=== PATIENT | female | born 1980 | race African-American/Black ===

== ENCOUNTER 2021-02-25 04:00 | Emergency (ER) | payer OTHER, SELFPAY ==
--- NOTE | ~2021-02-25 | US_ITS ---
EXAMINATION: US pelvic complete DATE: 02/25/2021 08:19 INDICATION: Pelvic pain. Fibroids. TECHNIQUE: Multiple transabdominal sonographic images of the pelvis were obtained. COMPARISON: CT abdomen and pelvis 02/25/2021 FINDINGS: The uterus measures 7.8 x 4.1 x 4.0 cm. There is no free fluid in the pelvis. The endometrial complex measures 2 mm in thickness. The uterus demonstrates heterogeneous echogenicity. There are 1.9 cm and 2.6 cm intramural uterine fibroids. The right ovary measures 2.3 x 1.6 x 1.4 cm. There is normal vas cular flow in right ovary. The left ovary is not visualized. IMPRESSION: 1. Uterine fibroids. Reviewed, dictated and finalized at location A. IMPRESSION: 1. Uterine fibroids.
--- NOTE | ~2021-02-25 | CT_ITS ---
EXAMINATION: CT abdomen pelvis w con DATE: 02/25/2021 05:33 INDICATION: Low abdominal pain. TECHNIQUE: Computed tomography (CT) of the abdomen and pelvis was performed with 100 mL Omnipaque 350 intravenous contrast. Automated exposure control and iterative reconstruction technique were employe d. The dose-length product was 584.97 mGy-cm. COMPARISON: CT abdomen and pelvis 10/17/2017 FINDINGS: The visualized portions of the lung bases demonstrate minimal atelectasis. No pleural effus ion. The heart size is normal. No pericardial effusion. The liver, gallbladder, spleen, pancreas, adr enal glands, and kidneys are normal. Stool distends the rectum. The appendix is normal. Uterine fibro ids are noted. There are no pathologically enlarged lymph nodes. There is no free intraperitoneal flu id. There is widespread subcutaneous fat stranding, likely fat necrosis and scarring such as from cos metic procedures. The bones are unremarkable. IMPRESSION: 1. Uterine fibroids. Reviewed, dictated and finalized at location A. IMPRESSION: 1. Uterine fibroids.
[2021-02-25 04:10] VITALS: BP 111/57; PULSE 72; RESP 18; TEMP 36.8; O2SAT 100
[2021-02-25 04:39] LABS: Basophils Percent Auto 0.4 % (0.2-1.2); Eosinophils Absolute Auto 0.2 K/mm3 (0-0.3); Eosinophils Percent Auto 2.8 % (0-4.4); Hemoglobin 14.3 g/dL (12.0-15.0); Immature Granulocyte Absolute 0.03 K/mm3 (0.00-0.031); Immature Granulocyte Percent A 0.4 % (0-0.5); Lymphocytes Absolute Auto 2.93 K/mm3 (0.9-3.2); Lymphocytes Percent Auto 40.8 % (18.3-44.2); Mean Corpuscular HGB Conc 33.3 g/dl (32-36); Mean Corpuscular Hemoglobin 28.8 pg (26-34); Mean Corpuscular Volume 86.7 fl (80-100); Mean Platelet Volume 10.9 fl (7.4-10.4); Monocytes Absolute Auto 0.6 K/mm3 (0.1-0.6); Monocytes Percent Auto 7.6 % (2.6-8.5); Neutrophils Absolute Auto 3.5 K/mm3 (1.3-6.7); Platelet Count Result 227 k/mm3 (150-375); Red Blood Count 4.96 M/mm3 (4.2-5.4); Red Cell Distribution Width 12.3 % (11.5-14.5); White Blood Count 7.2 K/mm3 (4.5-10.0)
[2021-02-25 04:52] LABS: Anion Gap 5 mmol/L (8-16); Blood Urea Nitrogen 14 mg/dL (7-17); Calcium 8.9 mg/dL (8.4-10.2); Carbon Dioxide 27 mmol/L (22-30); Chloride 106 mmol/L (98-107); Estimated CRCL calculation 82 ml/min; Estimated Glomerular Filt Rate > 60; Glucose 159 mg/dL (65-105); Potassium 3.8 mmol/L (3.4-5.0); Sodium 138 mmol/L (137-145)
[2021-02-25 04:55] LABS: Add Urine Microscopic? YES; Appearance Urine Clear (Clear); Bilirubin Urine Negative (Negative); Blood Urine 2+ (Negative); Color Urine Straw (Yellow); Glucose Urine UA Negative (Negative); Ketones Urine Negative (Negative); Leukocyte Esterase Ur Negative LEU/UL (Negative); Mucus Urine Rare /lpf; Nitrate Urine Negative (Negative); Protein Urine Negative (Negative); RBC Urine 0-2 /hpf (0-2); Specific Grav Ur 1.016 (1.001-1.035); Squamous Epithelial Cell Urine Occasional /hpf (Few); Urobilinogen Urine Negative mg/dL (<2.0); WBC Urine 0-3 /hpf
[2021-02-25 04:59] LABS: Alanine Aminotransferase 19 U/L (4-35); Albumin Level 3.7 g/dL (3.5-5.1); Alkaline Phosphatase 76 U/L (38-126); Aspartate Amino Transferase 24 U/L (14-36); Bilirubin,Total 0.2 mg/dL (0.2-1.3); Lipase 54 U/L (23-300)
[2021-02-25] MEDS: SODIUM CHLORIDE 0.9% IV 1,000 ML 999 ML IV CONT (05:20)
[2021-02-25] MEDS: MORPHINE SULFATE (*CRX) 4 MG/ML INJ IV PUSH ×2 (05:21→06:34)
[2021-02-25] MEDS: ONDANSETRON INJ 4 MG/2 ML VIAL IV PUSH (05:21)
--- NOTE | 2021-02-25 05:30 | ED.GENADULT ---
HPI - General Adult General Chief complaint: Abdominal Pain <Jeff Lane MD - Last Filed: 02/25/21 05:32> Stated complaint: abd pain <Jeff Lane MD - Last Filed: 02/25/21 05:32> Time Seen by Provider: 02/25/21 04:42 <Jeff Lane MD - Last Filed: 02/25/21 05:32> History of Present Illness HPI narrative: Patient 40-year-old female presents emergency department with chief complaint of abdominal pain. Patient reports she has history of endometriosis and has had an endometrial ablation before in the past patient states over the last week she has been spotting a little bit at night is worse patient states she spoke to her PAT[employer] PROGRAMER who recommended that she come to the emergency department for evaluation. Patient states that she has had no fever or chills. <Jeff Lane MD - Last Filed: 02/25/21 05:32> Related Data Allergies/adverse reactions: Allergies Allergy/AdvReac Type Severity Reaction Status Date / Time No Known Allergies Allergy Unverified 10/31/17 08:07 <Jeff Lane MD - Last Filed: 02/25/21 05:32> Review of Systems Review of Systems: Narrative: A 10 system review of systems was completed on the patient and is negative except for what is stated in the HPI. Nursing and ancillary documentation was reviewed. <Jeff Lane MD - Last Filed: 02/25/21 05:32> PMFSH Comments Past medical history significant for endometriosis Surgical history is history of tubal ligation and endometrial ablation Social history patient denies illicit drug <Jeff Lane MD - Last Filed: 02/25/21 05:32> Exam Narrative: Exam Narrative: GENERAL: Well-appearing, well-nourished, and in no acute distress. HEAD: Normocephalic, atraumatic. EYES: PERRLA and EOMI. ENT: Nares clear, no rhinorrhea or epistaxis. Mucous membranes moist. NECK: Supple. CHEST: Clear to auscultation. No respiratory distress. HEART: Regular rate and rhythm. No murmur heard. Normal peripheral pulses. ABDOMEN: Soft, tenderness to palpation bilateral lower quadrants, nondistended, normal active bowel sounds. EXTREMITIES: Normal range of motion. No edema. SKIN: Warm, dry, no rash. NEURO: No focal deficits. Alert and oriented x3. PSYCH: Normal mood and affect. <Jeff Lane MD - Last Filed: 02/25/21 05:32> Course Vital Signs Vital signs: Vital Signs Temperature 36.8 C 02/25/21 04:10 Pulse Rate 72 02/25/21 04:10 Respiratory Rate 18 02/25/21 04:10 Blood Pressure 111/57 L 02/25/21 04:10 Pulse Oximetry 100 02/25/21 04:10 Temperature 36.8 C 02/25/21 04:10 Pulse Rate 75 02/25/21 07:25 Respiratory Rate 18 02/25/21 07:25 Blood Pressure 120/59 L 02/25/21 07:25 Pulse Oximetry 100 02/25/21 07:25 <Jeff Lane MD - Last Filed: 02/25/21 05:32> Vital Signs Temperature 36.8 C 02/25/21 04:10 Pulse Rate 72 02/25/21 04:10 Respiratory Rate 18 02/25/21 04:10 Blood Pressure 111/57 L 02/25/21 04:10 Pulse Oximetry 100 02/25/21 04:10 Temperature 36.8 C 02/25/21 04:10 Pulse Rate 75 02/25/21 07:25 Respiratory Rate 18 02/25/21 07:25 Blood Pressure 120/59 L 02/25/21 07:25 Pulse Oximetry 100 02/25/21 07:25 <Destini Javier MD - Last Filed: 02/25/21 08:39> Medical Decision Making Vital Signs Vital Signs: Vital Signs Temperature 36.8 C 02/25/21 04:10 Pulse Rate 72 02/25/21 04:10 Respiratory Rate 18 02/25/21 04:10 Blood Pressure 111/57 L 02/25/21 04:10 Pulse Oximetry 100 02/25/21 04:10 Temperature 36.8 C 02/25/21 04:10 Pulse Rate 75 02/25/21 07:25 Respiratory Rate 18 02/25/21 07:25 Blood Pressure 120/59 L 02/25/21 07:25 Pulse Oximetry 100 02/25/21 07:25 <Jeff Lane MD - Last Filed: 02/25/21 05:32> Vital Signs Temperature 36.8 C 02/25/21 04:10 Pulse Rate 72 02/25/21 04:10 Respirat
[2021-02-25 05:47] VITALS: BP 111/62; PULSE 18; RESP 20; O2SAT 100
[2021-02-25 06:36] VITALS: BP 121/60; PULSE 76; RESP 18; O2SAT 100
[2021-02-25 07:25] VITALS: BP 120/59; PULSE 75; RESP 18; O2SAT 100
[2021-02-25] MEDS: HYDROmorphone HCL INJ (*CRX) 1 MG/ML SYR 0.5 MG IV PUSH (08:19)
== END 2021-02-25 09:07 | disposition home or self-care (01) ==
PROVIDERS: Emergency Medicine; Emergency Provider Emergency Medicine; PCP Family Medicine
DX: D25.9 Leiomyoma of uterus, unspecified (principal); R10.2 Pelvic and perineal pain
CPT/HCPCS: 36415; 74177; 76856; 80048; 80076; 81001; 81025; 83690; 85025; 96361; 96374; 96375; 96376; 99284; J1170; J2270; J2405; J7030; Q9967

== ENCOUNTER 2022-06-10 01:44 | Day surgery (SDC) | payer OTHER, SELFPAY ==
--- NOTE | 2022-06-02 08:26 | PC.NURSE ---
Report to the Outpatient Waiting Room, entrance under the green pavilion located off [facility], at time 0730___ on date _06/10/22_. OR Time: __09. - You and your visitor will be asked to self-screen and do not enter if you have any COVID symptoms. - Only one visitor and NO children visitors are allowed at this time. - The patient visitor is requested to leave or wait in car when not with patient due to restrictions. - A mask is required within the hospital. Patients may have clear liquids (water, carbonated beverages, clear teas, apple juice) until 3 hours prior to surgery with a maximum of 20 ounces. - No food from midnight until time of surgery - Infants may have breast milk until 4 hours before surgery, infant formula 6 hours prior to surgery. - Children will be allowed to drink immediately following surgery. If applicable, please bring a bottle or sippy cup to assist with drinking. Juice, water, soda, and popsicles are readily available. For infants on formula, please bring formula the day of surgery. Pacifiers are allowed. Take the following medications with a SIP of water the morning of surgery: ___NONE__ Medications to discontinue per physician NONE Date to take last dose Please no make-up, nail bulgarian, hairspray, perfume, deodorant, or body powder the day of surgery. No jewelry (including any body piercings) or valuables the day of surgery, leave them at home. Please take a shower or bath the night before, or the morning of, surgery with an antibacterial soap. Wear comfortable, loose fitting clothing. Children are encouraged to wear pajamas. - Jewelry must be removed prior to entering the operating room. Rings and piercings that are not removed may be cut off. - The hospital will not accept responsibility for valuables. - Please leave all valuables, including medications, at home the day of surgery. If you are going home after surgery, a licensed dumpcart driver must drive you home. - NO public transportation without another adult. - We recommend that an adult stay with you for 24 hours following discharge. - We also recommend that you do not drive, make important decision, drink alcoholic beverages, or take any drugs that were not prescribed by your health care provider for at least 24 hours after your discharge time. For Pediatric surgeries, we recommend two adults accompany the child home (only one inside the building at this time). Follow any additional instructions given to you from your surgeon. If you or anyone in your household have experienced Covid symptoms in the past week, please notify your surgeon or the nurse liaison at the phone number below for possible testing. Telephone instructions given to _PATIENT___and asked if any additional questions and then verbalized understanding. Patient advised to call surgeon office or pre surgery nurse liaison [phone] if any additional questions.
--- NOTE | 2022-06-09 13:12 | P.PNAN_ITS ---
Anes - Initial Pre Proc Eval Procedure: Operation Date: 06/10/22 07:30 Proposed Procedures p Left Shoulder Manipulation Under Anesthesia - Camden Jang MD Date/Time: 06/09/22 13:12 Surgeon: Camden Jang MD Pre Op Diagnosis: Frozen Left Shoulder Patient Data Age: 42 Gender: F Height: Weight: Allergies Allergy/AdvReac Type Severity Reaction Status Date / Time No Known Allergies Allergy Unverified 06/02/22 08:18 Home Medications Medication Instructions Recorded Confirmed Type [id number]-[id number] 1 tablet PO 06/02/22 History 50 mg-325 mg-40 mg tablet rimegepant 75 mg disintegrating 75 mg PO PRN PRN Migraine Headache 06/02/22 06/02/22 History tablet (Nurtec ODT) Patient hx anesthesia problems: none Family hx anesthesia problems: none Results Review: All pre-operative results and documents have been reviewed as part of the pre- operative evaluation. PMFSH Social History Social History Tobacco type: e-cigarettes/vaping Additional smoking assessment comments: DAILY FOR THE LAST MONTH Alcohol intake: current Drinks per week: 2 Living arrangements: alone Anes - Eval Final PreProcedure Day of Procedure 06/09/22 13:12 Patient weight: overweight Heart: regular rate and rhythm Lungs: clear to auscultation and normal air movement Airway: Mallampati scale class II Neurological: alert and oriented Last oral intake: >/= 8 hours ASA classification: II Emergent: no Anesthetic plan: proceed Anesthesia type and monitoring: general GIVS Results Review: All pre-operative results and documents have been reviewed as part of the pre- operative evaluation. Informed Consent: The patient's anesthetic plan and its attendant risks and benefits were discussed with the patient/family/POA. Questions were solicited and answers provided to the satisfaction of the patient/family/POA.
--- NOTE | 2022-06-09 21:15 | HP_ITS ---
DATE OF SERVICE: 06/10/2022 James Darling PA-C, dictating a history and physical report on behalf of Dr. Camden Jang. HISTORY: The patient is a 42-year-old female, who sees Dr. Jang regarding her left shoulder. The patient has a chronic ongoing history of pain with stiffness and loss of motion. This is consistent with frozen shoulder chronically. The patient has undergone treatment for this, which initially started when she was trying to escape a dog and jumped under the farris of the car and landed on her left shoulder. She has had a couple of shots of cortisone, gone through physical therapy for stretching, and taken oral prednisone without significant relief. She can only elevate her arm to about 100 degrees despite a long course of conservative measures. MRI scan shows thickening of the capsule consistent with adhesive capsulitis. No tear in the rotator cuff was noted. The patient at this point has discussed further treatment options in detail with Dr. Jang. She would like to proceed with a manipulation of her left shoulder under anesthesia. She is aware of the risk of fracture associated with the procedure. PAST MEDICAL HISTORY: ALLERGIES: DRUG ALLERGIES: NO KNOWN DRUG ALLERGIES. SHE HAS ALLERGIC REACTION TO STERI-STRIPS DUE TO THE ADHESIVE. MEDICATIONS: Current mediations include: 1. Ajovy 225 mg per 1.5 mL subcutaneous injection under the skin every 30 days. 2. Alprazolam 1 mg b.i.d. p.r.n. 3. Butalbital/acetaminophen/caffeine 50/325/40 mg, take twice daily as needed for migraines. 4. Vitamin B12 1000 mcg injection once a month. 5. Cyclobenzaprine 10 mg t.i.d. p.r.n. 6. Dextroamphetamine/amphetamine 10 mg tablets daily. 7. Diclofenac sodium 75 mg b.i.d. 8. Vitamin D 50,000 international units weekly. 9. Hydroxyzine hydrochloride 25 mg take 1-2 tablets 3 times a day p.r.n. nausea. 10. Ibuprofen 800 mg t.i.d. p.r.n. 11. Zyrtec ODT 75 mg disintegrating tablets 1 tablet by mouth as needed for panel of 40 mg b.i.d. 12. Rizatriptan 5 mg take 1 tablet at the onset of migraine headache. 13. Ubrelvy 50 mg take as needed. SOCIAL HISTORY: Negative for tobacco use. Does not report any alcohol intake. PREVIOUS SURGICAL HISTORY: Includes rotator cuff surgery, abdominoplasty, tubal ligation, and uterine ablation. REVIEW OF SYSTEMS: 10-point review of systems otherwise negative. PHYSICAL EXAMINATION: Per Dr. Jang: HEENT: Exam within normal limits. HEART: Regular rate and rhythm. LUNGS: Clear to auscultation. ABDOMEN: Benign. Bowel sounds positive in four quads. EXTREMITIES: Show the patient's left shoulder to be painful with any manipulation and range of motion. She has elevation to about 100 degrees, external rotation to about 20 degrees compared to full range of motion of the opposite shoulder. Strength is 5/5 except limited by her pain. No weakness is noted. The rotator cuff appears to be intact. Shoulder joint is otherwise stable. There is no effusion or swelling. No erythema, heat, or other signs of infection. She has full pain with neck motion. NEUROLOGIC: Neurovascularly, she is intact. SKIN: Intact. CENTRAL NERVOUS SYSTEM: Within normal limits. ASSESSMENT AND PLAN: By history and exam, the patient is noted to have a chronically frozen left shoulder due to adhesive capsulitis. The patient has discussed risks, benefits, limitations, and alternatives to the procedure in great detail with Dr. Jang. She would now like to proceed with a left shoulder manipulation under anesthesia. Proceed as indicated. The patient is aware of the risk of fracture associated with the procedure and agreed to proceed. The patient is scheduled to undergo the procedure on 06/10/2022, at [facility] with Dr. Jang. The
[2022-06-10] VITALS (8 sets, daily range): BP systolic 100–115; BP diastolic 54–70; PULSE 55–83; RESP 14–22; TEMP 36.4–36.6; O2SAT 96–100; BMI 32.3
[2022-06-10] MEDS: ACETAMINOPHEN 500 MG TABLET 1000 MG PO (07:00)
[2022-06-10] MEDS: LACTATED RINGERS 1,000 ML 30 ML IV CONT (07:00)
[2022-06-10] MEDS: KETOROLAC 15 MG/ML VIAL (*BKC) IV PUSH (07:00)
--- NOTE | 2022-06-10 07:15 | WPDHPUPDATE1 ---
History and Physical Update Update Date/Time: 06/10/22 07:15 History and Physical has been reviewed, including an updated exam of the patient. There are NO changes in the patient's condition. Risks, benefits, and alternatives have been discussed and questions answered. Patient agrees to proceed with procedure. Injection Let Shoulder
[2022-06-10] MEDS: LIDOCAINE HCL 1% PF 30 ML VIAL 4 ML INFILTRATE (07:29)
[2022-06-10] MEDS: methylPREDNISolone ACETATE 80 MG/ML VIAL IM (07:30)
--- NOTE | 2022-06-10 07:36 | W.PM.PROC2 ---
Procedure Note - Detailed Date of Procedure 06/10/22 Pre-op Diagnosis Frozen Left Shoulder Post-op Diagnosis Same Procedure Performed Manipulation and Injection Surgeon Camden Jang MD Indications Adhesive capsulitis left Findings Adhesive capsulitis with scarring Description of Procedure Patient brought to operating room 7. General anesthetic was administered. The arm was gently manipulated to full extension abduction external rotation. The bands were felt to tear. No fracture was appreciated. I then proceeded to inject the joint capsule with 80 milligrams Depo-Medrol 4 cubic centimeters of lidocaine. Estimated Blood Loss 0 Complications No immediate complications
[2022-06-10] MEDS: fentaNYL CITRATE INJ (*CRX) 100 MCG/2 ML VIAL 25 MCG IV PUSH ×5 (08:00→08:23)
[2022-06-10] MEDS: oxyCODONE HCL (*CRX) 5 MG TAB IR PO (08:56)
== END 2022-06-10 09:38 | disposition home or self-care (01) ==
PROVIDERS: PCP Family Medicine; Visit Provider Orthopaedic Surgery
PROC: (CPT 23700; principal; 2022-06-10 07:30)
DX: M75.02 Adhesive capsulitis of left shoulder (principal); F17.290 Nicotine dependence, other tobacco product, uncomplicated
CPT/HCPCS: 23700; A9270; J1040; J1885; J2250; J2704; J3010; J7120